=== PATIENT | male | born 1960 | race Caucasian/White ===

== ENCOUNTER 2017-11-28 10:53 | Emergency (ER) | payer BC ==
[2017-11-28 11:04] VITALS: BMI 27.0
--- NOTE | 2017-11-28 11:30 | DR.GENAD ---
HPI - PCP Primary Care Physician: cynthia streeter - HPI Comment HPI Comment: GIVEN BP MED WITHOUT IMPROVEMENT. GETTING WORSE. HISTORY MELANOMA TREATED WITH CHEMOTHERAPY IN [facility] 10YRS AGO. - Complaint/Symptoms Chief Complaint Doctors Comments: HEADACHE, VOMITING TIMES 6 WEEKS. Chief Complaint:: "head hurting for seven week, vomiting ever so often" - Nurses notes reviewed Nurses Notes Review: Yes - Source History Provided: Patient - Mode of Arrival Mode of Arrival: Ambulatory - Timing Onset of Chief Complaint: 11/27/17 Came on: Suddenly - Duration Duration: Constant Duration: Weeks - Severity Severity: Moderate PMH - PMH Past Medical History: Yes Past Medical History: Hypertension Past Surgical History: Yes Past Surgical History Comment: right arm - Family History History of Family Medical Conditions: Yes Family Medical History: Cancer, Coronary Artery Disease, Heart Failure, Hypertension - Social History Does patient currently use any type of tobacco product: Yes Have you used tobacco products in the last 12 months: Yes Type of Tobacco Use: Cigarettes How many years tobacco product used: 30 Does any household member use tobacco: No Alcohol Use: None Do you use any recreational Drugs:: No Lives With: Family Lives Where: Home - infectious screening In the last 2 months have you had wt loss of >10#?: NO Have you had fever, night sweats or hemotysis?: No Have you traveled outside the country in the last 6 months?: No Isolation: Standard ROS - Review of Systems Constitutional: No Symptoms Reported. negative: Chills, Fever, Weakness, Fatigue Eyes: No Symptoms Reported. negative: Eye Pain, Blurred Vision, Discharge ENTM: negative: Ear Pain, Nose Discharge, Nose Congestion, Throat Pain Respiratoy: negative: Productive Cough, Non-Productive Cough, Short of Breath, Wheezing, Hemoptysis Cardiovascular: No Symptoms Reported Gastrointestinal/Abdominal: Vomiting Genitourinary: No Symptoms Reported Neurological: Headache. negative: Weakness, Dizziness Musculoskeletal: No Symptoms Reported Integumentary: No Symptoms Reported Hematologic/Lymphatic: No Symptoms Reported Endocrine: No Symptoms Reported All Other Systems: Reviewed and Negative PE - Vital Signs Vitals: Temperature 97.5 F Pulse Rate 60 Respiratory Rate 19 Blood Pressure 177/88 O2 Sat by Pulse Oximetry 100 - General Limitations: No Limitations General Appearance: Alert - Head Head Exam: Normal Inspection - Eyes Eye exam: Normal Appearance - ENT ENT Exam: Normal External Ear Exam External Ear Exam: Normal External Inspection TM/Canal Exam: Bilateral Normal Nose Exam: Normal Nose Exam Mouth Exam: Normal Inspection Throat Exam: Normal Inspection - Neck Neck Exam: Trachea Midline - Chest Chest Inspection: Symmetric Chest Wall Rise - Respiratory Respiratory Exam: Normal Lung Sounds Bilat Respiratory Exam: Bilateral Clear to Auscultation - Cardiovascular Cardiovascular Exam: Regular Rate, Normal Rhythm, Normal Heart Sounds - Abdominal Exam Abdominal Exam: Normal Bowel Sounds, Soft. negative: Tenderness - Extremities Extremities Exam: Normal Inspection - Back Back Exam: Normal Inspection - Neurologic Neurological Exam: Alert, Oriented X3, CN II-XII Intact, Normal Gait, Reflexes Normal. negative: Motor Sensory Deficit - Psychiatric Psychiatric Exam: Normal Affect, Normal Mood - Skin Skin Exam: Normal Color MDM - Additional Information Additional Information Obtained From: Family - Differential Diagnosis Differential Diagnosis: VOMITING, HEADACHE, MIGRAINE, TUMOR, CVA Course - Treatment Treatment: SEE ORDERS. - Consultation Consultation Comments: DISCUSS PATIENT WITH DR. ERIC STANFORD [facility]. HE ACCEPTED PATIENT FOR TRANSFER. - Education/Counseling Education/Counseling: Patient, Family, Education Educated On: Diagnosis ROR - Labs Reviewed Laboratory Results Reviewed?: Yes Result Diagrams: 11/28/17 11:37 11/28/17 11:37 Laboratory: WBC 9.0 X10^3/uL (3.6-10.0) 11/28/17 11:37 RBC 5.22 X10^6/uL (4.7-6.0) 11/28/17 11:37 Hgb 16.5 g/dL (13.5-18.0) 11/28/17 11:37 Hct 48.7 % (42.0-54.0) 11/28/17 11:37 MCV 93.4 fL (80.0-100.0) 11/28/17 11:37 MCH 31.7 pg (27.0-34.0) 11/28/17 11:37 MCHC 33.9 g/dL (33.0-35.0) 11/28/17 11:37 RDW 13.7 % (11.6-16.5) 11/28/17 11:37 Plt Count 205 X10^3/uL (150.0-450.0) 11/28/17 11:37 MPV 8.5 fL (7.4-11.0) 11/28/17 11:37 Neut % 78.6 % (42.0-75.0) H 11/28/17 11:37 Lymph % 12.0 % (21.0-51.0) L 11/28/17 11:37 [place] % 8.3 % (0.0-13.0) 11/28/17 11:37 Eos % 0.6 % (0.9-2.9) L 11/28/17 11:37 Baso % 0.5 % (0.2-1.0) 11/28/17 11:37 Neut # 7.1 x10^3/uL (2.2-4.8) H 11/28/17 11:37 Lymph # 1.1 X10^3/uL (1.3-2.9) L 11/28/17 11:37 [place] # 0.7 x10^3/uL (0.3-0.8) 11/28/17 11:37 Eos # 0.1 x10^3/uL (0.0-0.2) 11/28/17 11:37 Baso # 0.0 X10^3/uL (0.0-0.1) 11/28/17 11:37 Absolute Nucleated RBC 0.0 /100WBC 11/28/17 11:37 Sodium 138 mmol/L (136-145) 11/28/17 11:37 Corrected Sodium 138 mmol/L (136-145) 11/28/17 11:37 Potassium 3.9 mmol/L (3.5-5.1) 11/28/17 11:37 Chloride 104 mmol/L (98-107) 11/28/17 11:37 Carbon Dioxide 27.4 mmol/L (21-32) 11/28/17 11:37 BUN 8 mg/dL (7-18) 11/28/17 11:37 Creatinine 0.79 mg/dL (0.70-1.30) 11/28/17 11:37 Est GFR (MDRD) Af Amer > 60 (>60) 11/28/17 11:37 Est GFR (MDRD) Non-Af > 60 (>60) 11/28/17 11:37 Glucose 120 mg/dL (65-99) H 11/28/17 11:37 Calcium 8.4 mg/dL (8.5-10.1) L 11/28/17 11:37 Corrected Calcium TNP 11/28/17 11:37 Total Bilirubin 0.40 mg/dL (0.2-1.0) 11/28/17 11:37 AST 20 Units/L (15-37) 11/28/17 11:37 ALT 60 Units/L (12-78) 11/28/17 11:37 Alkaline Phosphatase 73 Units/L (46-116) 11/28/17 11:37 Total Protein 7.1 g/dL (6.4-8.2) 11/28/17 11:37 Albumin 3.6 g/dL (3.4-5.0) 11/28/17 11:37 Globulin 3.5 g/dL (2.5-4.5) 11/28/17 11:37 Albumin/Globulin Ratio 1.0 Ratio (1.1-2.1) L 11/28/17 11:37 Influenza Type A (PCR) Negative (NEGATIVE) 11/28/17 11:35 Influenza Type B (PCR) Negative (NEGATIVE) 11/28/17 11:35 - XRAY XRAY Interpreted by: Radiologist XRAY Findings: REPORT DISCUSS WITH PATIENT AND HIS . - Diagnosis Discharge Problem: Cerebellar mass, Cerebellar herniation, Neoplasm of brain causing mass effect on adjacent structures - Discharge Plan Disposition: XFER [facility] Condition: Stable - Follow ups/Referrals Follow ups/Referrals: NFD,None [Primary Care Provider] - 3 days - Instructions
[2017-11-28 11:51] LABS: BASOPHILS % (AUTO) 0.5 % (0.2-1.0); EOSINOPHILS # (AUTO) 0.1 x10^3/uL (0.0-0.2); EOSINOPHILS % (AUTO) 0.6 % (0.9-2.9); HEMATOCRIT 48.7 % (42.0-54.0); HEMOGLOBIN 16.5 g/dL (13.5-18.0); LYMPHOCYTES # (AUTO) 1.1 X10^3/uL (1.3-2.9); MEAN CORPUSCULAR HEMOGLOBIN 31.7 pg (27.0-34.0); MEAN CORPUSCULAR HGB CONC 33.9 g/dL (33.0-35.0); MEAN CORPUSCULAR VOLUME 93.4 fL (80.0-100.0); MEAN PLATELET VOLUME 8.5 fL (7.4-11.0); MONOCYTES # (AUTO) 0.7 x10^3/uL (0.3-0.8); MONOCYTES % (AUTO) 8.3 % (0.0-13.0); NEUTROPHILS # (AUTO) 7.1 x10^3/uL (2.2-4.8); NEUTROPHILS % (AUTO) 78.6 % (42.0-75.0); PLATELET COUNT 205 X10^3/uL (150.0-450.0); RED BLOOD COUNT 5.22 X10^6/uL (4.7-6.0); RED CELL DISTRIBUTION WIDTH 13.7 % (11.6-16.5)
[2017-11-28 12:01] LABS: ALANINE AMINOTRANSFERASE 60 Units/L (12-78); ALBUMIN 3.6 g/dL (3.4-5.0); ALKALINE PHOSPHATASE 73 Units/L (46-116); ASPARTATE AMINO TRANSFERASE 20 Units/L (15-37); BLOOD UREA NITROGEN 8 mg/dL (7-18); CALCIUM 8.4 mg/dL (8.5-10.1); CARBON DIOXIDE 27.4 mmol/L (21-32); CHLORIDE 104 mmol/L (98-107); COR NA(FOR HYPERGLY) 138 mmol/L (136-145); CREATININE 0.79 mg/dL (0.70-1.30); SODIUM 138 mmol/L (136-145); TOTAL PROTEIN 7.1 g/dL (6.4-8.2); eGFR BLACK RACES > 60 (>60); eGFR NON BLACK RACES > 60 (>60)
--- NOTE | 2017-11-28 12:35 | CT ---
HISTORY: Headache. Study: CT brain without contrast Comparison: None Technique: Multiple axial images of the brain were obtained from the skull base to the vertex without administra tion of IV contrast. Automated exposure control (AEC) was utilized to adjust the MA and/or kV accordi ng to patient size. Findings: There is a mixed density mass centered in the right cerebellar hemisphere. There is moderate adjacent vasogenic edema. Exact size of the mass is difficult to determine given the lack of IV contrast but appears measures 3.2 x 3.0 x 2.6 cm. There is moderate adjacent vasogenic edema with mass effect on t he 4th ventricle partially effacing it and deviating it to the left of midline. There is slight infer ior displacement of the right cerebellar tonsil which extends into the foramen magnum. There is 1 cm of midline shift of the right cerebellar hemisphere. There is partial effacement of the pre pontine cistern. There is partial effacement of the right aspect of the quadrigeminal plate cistern with sli ght mass effect along the right posterior aspect of the midbrain is seen on series 4, image 15. The lateral ventricles and 3rd ventricle appear normal in size. There are air-fluid levels in both maxillary sinuses with air/secretions suggesting acute sinusitis i n the appropriate clinical setting. There is no acute osseous abnormality. IMPRESSION: 1. Heterogeneous mass centered in the right cerebellar hemisphere measuring up to 3.2 cm with modera te adjacent vasogenic edema resulting in partial effacement of the 4th ventricle, 1 cm of leftward mi dline shift in the posterior fossa, slight downward displacement of the right cerebellar tonsil into the foramen magnum in addition to upward transtentorial herniation and slight mass effect on the righ t posterior midbrain and partial effacement of the quadrigeminal plate cistern.. Addition, there is p artial effacement of the pre pontine cistern. Differential considerations included neoplasms such as medulloblastoma or metastasis. A cerebellar infarct and/or subacute parenchymal hemorrhage also inclu ded within the differential although felt less likely. Neurosurgical consultation and correlation wit h contrast-enhanced MRI of the brain is recommended. 2. Air-fluid levels in both maxillary sinuses consistent with acute sinusitis in the appropriate clin ical setting. 3. Other findings as above Reported By:
[2017-11-28] MEDS ORDERED: MORPHINE SULFATE INJ 4 MG ONE (13:14)
[2017-11-28] MEDS ORDERED: ZOFRAN INJ 4 MG VIAL ONE (13:14)
[2017-11-28] MEDS ORDERED: MORPHINE SULFATE INJ 4 MG IVP ONE (13:14)
[2017-11-28] MEDS ORDERED: ZOFRAN INJ 4 MG VIAL IVP ONE (13:14)
[2017-11-28 13:23] VITALS: BP 171/89
== END 2017-11-28 13:54 | disposition short-term general hospital (02) ==
LOC: ER 11:13
DX: G93.89 Other specified disorders of brain (principal); G93.5 Compression of brain; C71.9 Malignant neoplasm of brain, unspecified; R51 Headache
CPT/HCPCS: 36415; 70450; 80053; 85025; 87502; 96365; 96374; 96375; 99284; 99285; A4222; J2270; J2405

== ENCOUNTER 2018-01-01 07:49 | Emergency (ER) | payer BC ==
[2018-01-01 08:00] VITALS: BMI 26.6
[2018-01-01] MEDS ORDERED: ZOFRAN INJ 4 MG VIAL ONE (08:10)
[2018-01-01] MEDS ORDERED: MORPHINE SULFATE INJ 4 MG ONE (08:10)
--- NOTE | 2018-01-01 08:12 | CT ---
History: Headache for 7 weeks Study: CT head without contrast Findings: [address] imaging through the head is performed with coronal and sagittal reformatted i mages submitted as well. Comparison is made to previous study of 11/28/2017. There is a large intrapa renchymal hemorrhage within the right mid and posterior parietal white matter with a tiny amount of b lood within the posterior aspect of the right ventricle. Obliteration of the right occipital horn is noted. There has been interval maturation of a previous right cerebral infarct with associated enceph alomalacia. Impression: Acute right mid and posterior parietal intraparenchymal hemorrhage. Previous right cerebellar infarct. Reported By:
[2018-01-01 08:15] LABS: BASOPHILS % (AUTO) 0.3 % (0.2-1.0); EOSINOPHILS # (AUTO) 0.1 x10^3/uL (0.0-0.2); EOSINOPHILS % (AUTO) 0.7 % (0.9-2.9); HEMATOCRIT 39.6 % (42.0-54.0); HEMOGLOBIN 13.8 g/dL (13.5-18.0); LYMPHOCYTES # (AUTO) 2.2 X10^3/uL (1.3-2.9); LYMPHOCYTES % (AUTO) 20.1 % (21.0-51.0); MEAN CORPUSCULAR HEMOGLOBIN 31.7 pg (27.0-34.0); MEAN CORPUSCULAR HGB CONC 34.9 g/dL (33.0-35.0); MEAN CORPUSCULAR VOLUME 90.9 fL (80.0-100.0); MEAN PLATELET VOLUME 7.8 fL (7.4-11.0); MONOCYTES # (AUTO) 1.7 x10^3/uL (0.3-0.8); MONOCYTES % (AUTO) 15.7 % (0.0-13.0); NEUTROPHILS # (AUTO) 6.8 x10^3/uL (2.2-4.8); NEUTROPHILS % (AUTO) 63.2 % (42.0-75.0); PLATELET COUNT 301 X10^3/uL (150.0-450.0); RED BLOOD COUNT 4.36 X10^6/uL (4.7-6.0); RED CELL DISTRIBUTION WIDTH 13.5 % (11.6-16.5); WHITE BLOOD COUNT 10.7 X10^3/uL (3.6-10.0)
[2018-01-01 08:27] LABS: PLATELET MORPHOLOGY COMMENT NORMAL (NORMAL)
[2018-01-01 08:31] LABS: ALANINE AMINOTRANSFERASE 53 Units/L (12-78); ALBUMIN 3.3 g/dL (3.4-5.0); ALKALINE PHOSPHATASE 76 Units/L (46-116); ASPARTATE AMINO TRANSFERASE 20 Units/L (15-37); BLOOD UREA NITROGEN 9 mg/dL (7-18); CALCIUM 8.6 mg/dL (8.5-10.1); CARBON DIOXIDE 28.6 mmol/L (21-32); CHLORIDE 101 mmol/L (98-107); CHOLESTEROL 187 mg/dL (0-200); COR CA(FOR HYPOALB) 9.2 mg/dL (8.5-10.1); CREATININE 0.71 mg/dL (0.70-1.30); HDL CHOLESTEROL 62 mg/dL (40-60); SODIUM 136 mmol/L (136-145); TOTAL PROTEIN 6.8 g/dL (6.4-8.2); TRIGLYCERIDES 87 mg/dL (0-150); eGFR BLACK RACES > 60 (>60); eGFR NON BLACK RACES > 60 (>60)
--- NOTE | 2018-01-01 08:31 | DR.GENAD ---
HPI - PCP Primary Care Physician: PAM - HPI Comment HPI Comment: 12/03/2017, HAD BRAIN TUMOR REMOVE AND IS CURRENTLY UNDERGOING RADIATION THERAPY. - Complaint/Symptoms Chief Complaint Doctors Comments: LEFT SIDED WEAKNESS WITH LEFT FACIAL DROOPING SINCE 06:15 THIS AM. Chief Complaint:: LEFT SIDED WEAKNESS, LEFT SIDED FACIAL DROOPING THAT BEGAN AT 0615. STATES PT. STARTED C/O WITH HIS LEG FEELING "WEIRD" AND THE WEAKNESS STARTED EXTENDING UPWARDS. PT. HAD A BRAIN TUMOR REMOVED ON 12/03/17 IN [facility] IN [place], [place]. PT. IS CURRENTLY ON RADIATION. - Nurses notes reviewed Nurses Notes Review: Yes - Source History Provided: Patient, Family Member - Mode of Arrival Mode of Arrival: Wheelchair - Timing Onset of Chief Complaint: 01/01/18 Came on: Suddenly - Duration Duration: Constant Duration: Hours - Severity Severity: Moderate PMH - PMH Past Medical History: Yes Past Medical History: Hypertension Past Medical History Comment: BRAIN MASS Past Surgical History: Yes Surgical History: Ortho Surgery Past Surgical History Comment: BRAIN SURGERY TO REMOVE TUMOR - Family History History of Family Medical Conditions: Yes Family Medical History: Cancer, Coronary Artery Disease, Heart Failure, Hypertension - Social History Does patient currently use any type of tobacco product: No Have you used tobacco products in the last 12 months: No Type of Tobacco Use: None Does any household member use tobacco: No Alcohol Use: None Do you use any recreational Drugs:: No Lives With: Spouse Lives Where: Home - infectious screening In the last 2 months have you had wt loss of >10#?: NO Have you had fever, night sweats or hemotysis?: No Have you traveled outside the country in the last 6 months?: No Isolation: Standard ROS - Review of Systems Constitutional: Weakness Eyes: Other (EYE DEVIATED TO LEFT.) ENTM: negative: Ear Pain, Nose Discharge, Nose Congestion Respiratoy: negative: Non-Productive Cough, Moist Cough, Short of Breath, Wheezing, Hemoptysis Cardiovascular: negative: Chest Pain, Edema Gastrointestinal/Abdominal: negative: Abdominal Pain, Nausea, Vomiting Genitourinary: No Symptoms Reported Neurological: Weakness (LEFT SIDED.), Other (FACIAL DROOPING). negative: Speech Problem Musculoskeletal: Other (LEFT SIDED WEAKNESS) Integumentary: No Symptoms Reported Hematologic/Lymphatic: No Symptoms Reported Endocrine: No Symptoms Reported All Other Systems: Reviewed and Negative PE - Vital Signs Vitals: Temperature 97 F Pulse Rate [Right Radial] 77 Pulse Rate 75 Respiratory Rate 16 Blood Pressure [Left Arm] 155/90 Blood Pressure 157/87 O2 Sat by Pulse Oximetry 97 - General Limitations: No Limitations General Appearance: Alert - Head Head Exam: Normal Inspection - Eyes Eye exam: PERRL, Other (EYES DEVIATED TO LEFT.) - ENT ENT Exam: Normal Exam External Ear Exam: Normal External Inspection TM/Canal Exam: Bilateral Normal Nose Exam: Normal Nose Exam Mouth Exam: Normal Inspection Throat Exam: Normal Inspection - Neck Neck Exam: Other (NECK DEVIATED TO LEFT) - Chest Chest Inspection: Symmetric Chest Wall Rise - Respiratory Respiratory Exam: Normal Lung Sounds Bilat Respiratory Exam: Bilateral Clear to Auscultation - Cardiovascular Cardiovascular Exam: Regular Rate, Normal Rhythm, Normal Heart Sounds - Abdominal Exam Abdominal Exam: Normal Bowel Sounds, Soft. negative: Tenderness - Extremities Extremities Exam: negative: Tenderness, Calf Tenderness - Back Back Exam: Normal Inspection - Neurologic Neurological Exam: Alert, Oriented X3, Motor Sensory Deficit (LEFT SIDED.) - Psychiatric Psychiatric Exam: Anxious - Skin Skin Exam: Normal Color MDM - Additional Information Additional Information Obtained From: Family - Differential Diagnosis Differential Diagnosis: CVAM TUMOR, BRAIN HEMORRHAGE Course - Treatment Treatment: SEE ORDERS - Consultation Consultation Comments: DR. JOHNSON AT [facility] ED ACCEPTED PATIENT FOR TRANSFER. - Education/Counseling Education/Counseling: Patient, Family, Education Educated On: Diagnosis, Needs for Follow Up ROR - Labs Reviewed Laboratory Results Reviewed?: Yes Result Diagrams: 01/01/18 08:10 01/01/18 08:10 Laboratory: WBC 10.7 X10^3/uL (3.6-10.0) H 01/01/18 08:10 RBC 4.36 X10^6/uL (4.7-6.0) L 01/01/18 08:10 Hgb 13.8 g/dL (13.5-18.0) 01/01/18 08:10 Hct 39.6 % (42.0-54.0) L 01/01/18 08:10 MCV 90.9 fL (80.0-100.0) 01/01/18 08:10 MCH 31.7 pg (27.0-34.0) 01/01/18 08:10 MCHC 34.9 g/dL (33.0-35.0) 01/01/18 08:10 RDW 13.5 % (11.6-16.5) 01/01/18 08:10 Plt Count 301 X10^3/uL (150.0-450.0) 01/01/18 08:10 Plt Count Comment Adequate (ADEQUATE) 01/01/18 08:10 MPV 7.8 fL (7.4-11.0) 01/01/18 08:10 Neut % 63.2 % (42.0-75.0) 01/01/18 08:10 Lymph % 20.1 % (21.0-51.0) L 01/01/18 08:10 [place] % 15.7 % (0.0-13.0) H 01/01/18 08:10 Eos % 0.7 % (0.9-2.9) L 01/01/18 08:10 Baso % 0.3 % (0.2-1.0) 01/01/18 08:10 Neut # 6.8 x10^3/uL (2.2-4.8) H 01/01/18 08:10 Lymph # 2.2 X10^3/uL (1.3-2.9) 01/01/18 08:10 [place] # 1.7 x10^3/uL (0.3-0.8) H 01/01/18 08:10 Eos # 0.1 x10^3/uL (0.0-0.2) 01/01/18 08:10 Baso # 0.0 X10^3/uL (0.0-0.1) 01/01/18 08:10 Absolute Nucleated RBC 0.0 /100WBC 01/01/18 08:10 Total Counted 100 01/01/18 08:10 Neutrophils % (Manual) 68 % (39-76) 01/01/18 08:10 Lymphocytes % (Manual) 22 % (13-43) 01/01/18 08:10 Monocytes % (Manual) 10 % (4-9) H 01/01/18 08:10 Plt Morphology Comment Normal (NORMAL) 01/01/18 08:10 RBC Morphology Normal (NORMAL) 01/01/18 08:10 INR Target Range - 01/01/18 08:10 INR 0.98 (0.8-1.3) 01/01/18 08:10 PTT 33.4 SECONDS (22.9-36.5) 01/01/18 08:10 PTT Comment - 01/01/18 08:10 Fibrinogen 556 mg/dL (239-489) H 01/01/18 08:10 Sodium 136 mmol/L (136-145) 01/01/18 08:10 Corrected Sodium TNP 01/01/18 08:10 Potassium 3.8 mmol/L (3.5-5.1) 01/01/18 08:10 Chloride 101 mmol/L (98-107) 01/01/18 08:10 Carbon Dioxide 28.6 mmol/L (21-32) 01/01/18 08:10 BUN 9 mg/dL (7-18) 01/01/18 08:10 Creatinine 0.71 mg/dL (0.70-1.30) 01/01/18 08:10 Est GFR (MDRD) Af Amer > 60 (>60) 01/01/18 08:10 Est GFR (MDRD) Non-Af > 60 (>60) 01/01/18 08:10 Glucose 106 mg/dL (65-99) H 01/01/18 08:10 Calcium 8.6 mg/dL (8.5-10.1) 01/01/18 08:10 Corrected Calcium 9.2 mg/dL (8.5-10.1) 01/01/18 08:10 Total Bilirubin 0.30 mg/dL (0.2-1.0) 01/01/18 08:10 AST 20 Units/L (15-37) 01/01/18 08:10 ALT 53 Units/L (12-78) 01/01/18 08:10 Alkaline Phosphatase 76 Units/L (46-116) 01/01/18 08:10 Total Protein 6.8 g/dL (6.4-8.2) 01/01/18 08:10 Albumin 3.3 g/dL (3.4-5.0) L 01/01/18 08:10 Globulin 3.5 g/dL (2.5-4.5) 01/01/18 08:10 Albumin/Globulin Ratio 0.9 Ratio (1.1-2.1) L 01/01/18 08:10 Triglycerides 87 mg/dL (0-150) 01/01/18 08:10 Cholesterol 187 mg/dL (0-200) 01/01/18 08:10 LDL Cholesterol, Calc 108 mg/dL (0-100) H 01/01/18 08:10 HDL Cholesterol 62 mg/dL (40-60) H 01/01/18 08:10 Cholesterol/HDL Ratio 3.0 (0.0-5.0) 01/01/18 08:10 - XRAY XRAY Findings: REPORT DISCUSS WITH PATIENT AND . - EKG Rhythm: NSR (EKG NOTED) - Diagnosis Discharge Problem: Intracranial hemorrhage - Discharge Plan Disposition: XFER [facility] Condition: Stable - Follow ups/Referrals Follow ups/Referrals: Rosanne OROZCO [Primary Care Provider] - 3 days - Instructions
[2018-01-01 08:37] VITALS: BP 155/90
== END 2018-01-01 08:45 | disposition short-term general hospital (02) ==
LOC: ER 07:54
DX: I62.9 Nontraumatic intracranial hemorrhage, unspecified (principal)
CPT/HCPCS: 36415; 70450; 80053; 80061; 85025; 85384; 85610; 85730; 93005; 93010; 96365; 99285; A4222; J2270; J2405